=== PATIENT | male | born 1955 | race Caucasian/White ===

== ENCOUNTER 2021-08-16 08:24 | Day surgery (SDC) | payer BC ==
[2021-08-14 10:54] VITALS: BMI 27.3
[~2021-08-16 08:24] MED LIST: LACTATED RINGERS 1,000 ML IV SCH; LIDOCAINE 1% (10MG/ML) FOR IV START INTRADERMA PRN
[2021-08-16 09:14] VITALS: TEMP 98.1
[2021-08-16] MEDS ORDERED: PROPOFOL 10 MG/ML 20 ML VIAL IV ONE (09:51)
--- NOTE | 2021-08-16 10:10 | P.PCN ---
Date of Procedure: 08/16/21 Procedure(s) Performed: BRIEF HISTORY: Patient is a 66-year-old pleasant 8 male scheduled for an elective colonoscopy as a part of screening for colon cancer and family history of colon cancer. His Father was diagnosed with colon cancer at age 65. PROCEDURE PERFORMED: Colonoscopy. PREOPERATIVE DIAGNOSIS: Screening for colon cancer and family history of colon cancer. IV sedation per Anesthesia. PROCEDURE: After informed consent was obtained, the patient, was brought into the endoscopy unit. IV sedation was administered by Anesthesia under continuous monitoring. Digital rectal examination was normal. Initially the Olympus CF-160 flexible video colonoscope was then inserted in the rectum, gradually advanced into the cecum without any difficulty. Careful examination was performed as the scope was gradually being withdrawn. Ileocecal valve and the appendiceal orifice were visualized and appeared normal. Prep was excellent. Mucosa of the cecum, ascending colon, transverse colon, descending colon, sigmoid colon, and rectum appeared normal. Retroflexion was performed in the rectum and no lesions were seen. The patient tolerated the procedure well. IMPRESSION: Normal-appearing colon from rectum to cecum with no evidence of colorectal neoplasia . RECOMMENDATIONS: Findings of this examination were discussed with the patient as well as his family. He was advised to have a repeat screening colonoscopy every 5 years because of family history of colon cancer.
[2021-08-16 10:15] VITALS: BP 130/73; RESP 16
[2021-08-16 10:30] VITALS: PULSE 66
== END 2021-08-16 10:45 | disposition home or self-care (01) ==
LOC: ORWHC2ENDO 08:24
PROVIDERS: ATTEND Internal Medicine Gastroenterology
DX: Z12.11 Encounter for screening for malignant neoplasm of colon (principal); Z80.0 Family history of malignant neoplasm of digestive organs; E78.5 Hyperlipidemia, unspecified; Z79.899 Other long term (current) drug therapy
CPT/HCPCS: 45378; J2704

== ENCOUNTER → 2023-03-06 | Outpatient (CLI) | payer BC, MEDICARE ==
--- NOTE | 2023-03-06 10:50 | CA ---
Exercise Stress Test Report Name: Alin Kenyon Exam Date: 03/06/2023 09:01 Exam Location: [place] Stress Ht (in): 68 Wt (lb): 185 BSA: 1.98 Ordering Phys: Kalee Pastor DO Referring Phys: ROBERTH PASTOR,, Technologist: Walter Robins Age: 67 Gender: M : 1955 Procedure CPT: Indications: R07.89 ICD-10 Codes: Patient History: Medications: LIPITOR Meds past 24 hrs: Pretest Chest Pain: STRESS TEST Mayank Protocol Exercise Duration (min:sec): 10:[address] Depressions (mm): Angina Score: Perez Score: Resting HR (bpm): 82 Peak HR (bpm): 151 Resting BP (mmHg): 137 / 83 Peak BP (mmHg): 217 / 85 MPHR: 155 Target HR: 132 % MPHR: 97 METS: 12.1 Total Dose: Peak Dose: Atropine: Double Product: 46626 BP Response: Stress Termination: Reached target heart rate Stress Symptoms: NO SYMPTOMS Stress Summary: ECG ANALYSIS Resting ECG: Stress ECG: CONCLUSIONS Baseline EKG revealed a normal sinus rhythm without significant ST-T changes. Patient walked on a standard Mayank protocol for 10 minutes and 18 seconds. His resting heart rate was 82 bpm and peak heart rate was 151 bpm. Resting blood pressure was 137/83 and peak blood pressure was 217/85. Patient had a hypertensive response to exercise. He did not have angina there were no EKG changes to indicate ischemia and there was no arrhythmia. By EKG criteria this is a negative stress has been good exercise capacity, hypertensive response to exercise. No evidence of ischemia Dr. Meredith Huddleston MD (Electronically Signed) Final Date: 06 March 2023 10:49
== END | disposition home or self-care (01) ==
LOC: RADNMMAIN 08:33
PROVIDERS: ATTEND Family Medicine
DX: R07.89 Other chest pain (principal)
CPT/HCPCS: 93017

== ENCOUNTER → 2024-11-13 | Outpatient (CLI) | payer MEDICARE ==
[2024-11-13 15:35] LABS: Basophils # (A) 0.04 X 10*3/uL (0.00-0.10); Basophils % (A) 0.4 %; Eosinophils % (A) 2.2 %; HCT 38.8 % (39.6-50.0); HGB 13.3 g/dL (13.0-17.0); Lymphocytes # (A) 1.34 X 10*3/uL (0.90-5.00); Lymphocytes % (A) 14.8 %; MCH 29.4 pg (27.0-32.0); MCHC 34.3 g/dL (32.0-37.0); MCV 85.8 FL (80.0-97.0); Mean Platelet Volume 9.4 FL (9.5-12.2); Monocytes # (A) 0.66 X 10*3/uL (0.20-1.00); Monocytes % (A) 7.3 %; NRBC Per 100 WBC 0 X 10*3/uL (0.00-0.01); Neutrophils # (A) 6.76 X 10*3/uL (1.80-7.70); Neutrophils % (A) 74.9 %; Platelet Count 220 X 10*3/uL (140-440); RBC 4.52 X 10*6/uL (4.40-5.60); RDW 13.6 % (11.5-14.5); WBC 9.04 X 10*3/uL (4.50-10.00)
== END | disposition home or self-care (01) ==
LOC: LABWHC1 09:58
PROVIDERS: ATTEND Surgery
DX: Z01.812 Encounter for preprocedural laboratory examination (principal); K40.91 Unilateral inguinal hernia, without obstruction or gangrene, recurrent
CPT/HCPCS: 36415; 85025; 86850; 86900; 86901; 93005

== ENCOUNTER → 2024-11-23 | Day surgery (SDC) | payer MEDICARE ==
[~2024-11-23] MED LIST changes: +ACETAMINOPHEN TAB 325 MG TAB PO SCH; +GLYCOPYRROLATE 0.2 MG/ML 2 ML VIAL ONE; +IBUPROFEN 600 MG TAB PO SCH; -LACTATED RINGERS 1,000 ML IV SCH; +LIDOCAINE 1% INJ 10MG/ML (20 ML MDV) ONE; +MIDAZOLAM 2 MG/2 ML VIAL ONE; +NEOSTIGMINE 1 MG/ML 10 ML VIAL ONE; +PROPOFOL 10 MG/ML 20 ML VIAL IV ONE; +ROCURONIUM 10 MG/ML (5 ML VIAL) IV ONE; +SUCCINYLCHOLINE CHLORIDE 200 MG/10 ML VIAL IV ONE; +droPERidol 2.5 MG/ML VIAL IVP ONE; +fentaNYL (PF) 50 MCG/ML 2 ML AMP ONE
[2024-11-23] MEDS: IV FLUID CONTINUATION 1,000 ML IV ONE ×2 (06:34→10:00)
[2024-11-23 06:39] VITALS: TEMP 97
[2024-11-23] MEDS: ACETAMINOPHEN TAB 500 MG TAB PO PRN (06:56)
[2024-11-23] MEDS: DEXAMETHASONE SOD PHOSPHATE 4 MG/ML 1 ML VIAL IV ONE (06:57)
[2024-11-23] MEDS: HEPARIN SODIUM,PORCINE 5,000 UNIT/ML 1 ML VIAL SQ PRN (06:57)
[2024-11-23] MEDS: ONDANSETRON 4 MG/2 ML VIAL IVP ONE (06:57)
[2024-11-23] MEDS: LACTATED RINGERS 1,000 ML IV SCH (06:57)
[2024-11-23] MEDS: TAMSULOSIN 0.4 MG CAP.ER.24H PO STA (07:30)
[2024-11-23] MEDS: BUPIVACAINE (PF) 0.25% 30 ML VIAL SQ ONE (07:53)
--- NOTE | 2024-11-23 09:30 | P.OP ---
Date of Procedure: 11/23/24 Procedure(s) Performed: PREOPERATIVE DIAGNOSIS: Recurrent incarcerated right inguinal hernia POSTOPERATIVE DIAGNOSIS: Same PROCEDURE: Laparoscopic da Isiah assisted repair recurrent direct incarcerated inguinal hernia right SURGEON: Dr. Worrell ANESTHESIA: General EBL: 10 cc OPERATIVE PROCEDURE DETAILS: Patient was placed in the operating table in the supine position. The patient was placed under general anesthesia. The abdomen was prepped and draped in usual sterile fashion. A small curvilinear suprau mbilical incision was made. The fascia was retracted anteriorly with Seymour forceps. The Veress needle was inserted. The saline drop test was normal. Insufflation took place to 15 mmHg. An 8 mm trocar was placed into the peritoneal cavity. 2 additional 8 mm trochars were placed in the right upper quadrant and left upper quadrant under visualization. The robotic arms were then brought in and docked into place. The fenestrated bipolar was used in the left arm and the laparoscopic maura was utilized in the right arm. A 30 8 mm scope was used in the up position. The peritoneal cavity was inspected. The patient had no hernia on the left visualized. The patient had a small indirect hernia on the right-hand side but the main hernia that he was experiencing symptoms from was a large direct incarcerated hernia. The peritoneum was incised in a horizontal fashion cephalad to the internal inguinal ring. Following that careful dissection of the preperitoneal space took place. This took place using both electrocautery, sharp dissection but primarily blunt dissection. Visualization of the pubic tubercle and Preet's ligament took place medially. Full dissection took place laterally as well. The hernia sac was fully dissected. There was some serous fluid within the hernia sac. The hernia sac was somewhat challenging to fully reduce although we were finally able to do so. There was a small vessel extending from the inferior epigastric across of this hernia sac that was clipped using an absorbable clipper. There was no visible cord lipoma penetrating through the internal inguinal ring. Once we had adequate space the [id number] Progrip mesh was advanced into the preperitoneal space and flattened out appropriately to cover all potential hernia sites. The mesh was sutured medially to the folding edge of Preet's ligament. This was performed using a absorbable 3-0 V-Loc suture. The peritoneal defect was then closed using a absorbable 2-0 VLok suture. The hernia sac had a longitudinal defect in the peritoneal surface that was closed using a running 3 OV lock suture. The hernia sac was thenincorporated into the peritoneal closure to help prevent future recurrence. The pneumoperitoneum was then evacuated. The skin of all 3 sites was closed using a 4-0 Monocryl stitch. Skin glue was then applied. TYPE OF MESH USED: 15 cm ProGrip LOCATION OF MESH: Sublay preperitoneal FIXATION: Absorbable 3 oh V-Loc PREOPERATIVE DISCUSSION ON SMOKING CESSASTION: Yes PREOPERATIVE DISCUSSION ON MORBID OBESITY: Yes PREOPERATIVE DISCUSSION ON APPROPRIATE USE OF NARCOTIC USE: Yes PREOPERATIVE EDUCATION: Multi Modal, Smoking Cessation and Weight Loss with BMI over 35. DISPOSITION: Stable to recovery room
[2024-11-23] MEDS: KETOROLAC 15 MG/ML 1 ML VIAL IVP STA (09:45)
[2024-11-23] MEDS: HYDROmorphone 0.5 MG/0.5 ML SYRINGE IVP PRN (09:46)
[2024-11-23 11:09] VITALS: RESP 16
[2024-11-23 11:37] VITALS: BP 127/79; PULSE 75
== END ==
LOC: OR 05:37
PROVIDERS: ATTEND Surgery
DX: K40.31 Unilateral inguinal hernia, with obstruction, without gangrene, recurrent (principal); E78.5 Hyperlipidemia, unspecified; Z79.899 Other long term (current) drug therapy
CPT/HCPCS: 49651; S2900